=== PATIENT | female | born 1985 | race Two or more races ===

== ENCOUNTER 2025-01-27 23:25 | Emergency (ER) | payer MEDICAID, SELFPAY ==
[2025-01-27 23:28] VITALS: BMI 30.1
[2025-01-27 23:39] VITALS: BP 155/91; PULSE 98; RESP 18; TEMP 36.7; O2SAT 98
--- NOTE | 2025-01-27 23:54 | XR_ITS ---
Examination: PA chest single view TECHNIQUE: Upright PA chest single view Date and time: January 28, 2025, 0022 hours, comparison August 14, 2023 INDICATIONS: Coughing chest pain beginning one week ago. FINDINGS: Normal heart size. No lobar pneumonia. Again noted pulmonary nodule left upper lobe stable compared with August 14, 2023 Mild osteopenia IMPRESSION: No interval pneumonia or pulmonary edema
--- NOTE | 2025-01-28 00:47 | EDNOTE_ITS ---
Upper Respiratory Inf. RME/HPI General Chief Complaint: Flu Like Symptoms Stated Complaint: FEVER, COUGH, SOB, DIZZINESS Time Seen by Provider: 01/27/25 23:54 Arrival date/time: 01/27/25 23:25 39F with history of DM and asthma presents to ED with several days of cough, fevers/chills and intermittent SOB and dizziness. Limitations: no limitations Related Data Previous Rx's ?Medication ?Instructions ?Recorded metformin 850 mg tablet 850 mg PO BID #60 tabs 12/16 glipizide 5 mg tablet 5 mg PO QDAY #30 tabs albuterol sulfate 90 mcg/actuation 2 puff inhalation Q ID PRN 03/09/21 aerosol inhaler (Proventil HFA) shortness of breath or wheezing #8.5 grams ibuprofen 800 mg tablet 800 mg PO TID PRN pain #30 t abs 09/23/22 albuterol sulfate 90 mcg/actuation 1 puff inhalation Q 6H PRN 08/15/23 aerosol inhaler (Ventolin HFA) shortness of breath or wheezing #6.7 grams ibuprofen 400 mg tablet 400 mg PO Q6H PRN fever or p ain 09/17/23 #20 tabs ondansetron 4 mg disintegrating 4 mg PO Q8H PRN nausea and 09/17/23 tablet vomiting #15 tabs albuterol sulfate 90 mcg/actuation 2 puff inhalation Q 6H PRN 01/28/25 aerosol inhaler (Ventolin HFA) shortness of breath or wheezing #8.5 grams azithromycin 250 mg tablet See Rx Instructions PO .COM PLEX #6 01/28/25 tabs Allergies Allergy/AdvReac Type Severity Reaction Status Date / Time No Known Allergies Allergy Verified 01/27/25 23:33 Review of Systems Review of Systems Systems Reviewed: All systems reviewed, normal except as documented Constitutional Constitutional: Reports system reviewed and no additional complaints, except as documented, Reports as per HPI, Reports chills, Reports fever(s) and Denies headache(s) ENT Ears, Nose, Mouth, and Throat: Reports as per HPI, Denies disequilibrium, Denies headache(s) and Reports vertigo Cardiovascular Cardiovascular: Reports system reviewed and no additional complaints, except as documented, Denies chest pain and Reports dyspnea Respiratory Respiratory: Reports system reviewed and no additional complaints, except as documented, Reports as per HPI, Reports cough and Reports dyspnea Gastrointestinal Gastrointestinal: Reports system reviewed and no additional complaints, except as documented, Denies abdominal pain, Denies nausea and Denies vomiting Neurologic Neurologic: Reports system reviewed and no additional complaints, except as doc umented, Denies confusion, Denies disequilibrium, Denies headache(s) and Reports vertigo Psychiatric Psychiatric: Denies confusion Past Medical History Past Medical History NEUROLOGIC: Positive Preston's Palsy (2019) CARDIAC: Negative Cardiac Disorders or Congestive Heart Failure RESPIRATORY: Positive Asthma; Negative Chronic Obstructive Pulmonary Disease (COPD) GENITOURINARY: Negative Renal Disease ENDOCRINE: Positive Diabetes Mellitus Type 2; Negative Diabetes Mellitus Type 1 HEMATOLOGIC: Negative Sickle Cell Disease Social History SMOKING STATUS: Never smoker ED Exam General Limitations: Present no limitations General appearance: Present alert and in no apparent distress Head Head exam: Present atraumatic Eye Eye exam: Present normal appearance, PERRL and EOMI ENT ENT exam: Present mucous membranes moist Expanded ENT Exam Throat exam: Present tonsillar erythema; Absent tonsillomegaly, tonsillar exudate, R peritonsillar mass, L peritonsillar mass or muffled voice Neck Neck exam: Present normal inspection, full ROM and trachea midline Chest Chest inspection: Present normal inspection and symmetric chest wall rise Respiratory Respiratory exam: Present normal lung sounds bilaterally Cardiovascular Cardiovascular exam: Present regular rate, normal rhythm and normal heart sounds Abdominal Exam Abdominal exam: Present soft and normal bowel sounds Extremities Exam Extremities exam: Present normal inspection and full ROM Back Exam Back exam: Present normal inspection and full ROM Neurological Exam Neurological exam: Present alert, oriented X3 and CN II-XII intact Psychiatric Psychiatric exam: Present normal affect and normal mood Skin Skin exam: Present warm, dry, intact and normal color Course Quality Measures none Orders Category Date Time Status Bedside COVID-19 Antigen Test NOW Care 01/27/25 23:33 Completed Bedside Influenza A&B Antigen Test NOW Care 01/27/25 23:33 Completed XR chest 1V portable Stat Exams 01/27/25 23:54 Taken Strep A Rapid Stat Lab 01/28/25 00:05 Completed predniSONE Med 01/27/25 23:54 Discontinued 60 mg PO X1 ONE Vital Signs Vital signs: Vital Signs Temperature 98.1 F 01/27/25 23:39 Pulse Rate 98 01/27/25 23:39 Respiratory Rate 18 01/27/25 23:39 Blood Pressure 155/91 H 01/27/25 23:39 Pulse Oximetry (%) 98 01/27/25 23:39 Oxygen Delivery Method Room Air 01/27/25 23:39 O2 at 98% on RA and WNLs Upper Respiratory Infection MDM Narrative MDM Narrative:: 39F with history of DM and asthma presents to ED with several days of cough, fevers/chills and intermittent SOB and dizziness. Physical exam reveals red oropharynx, but otherwise clear lungs. Normal WOB. Speech normal. Gait normal. Patient is afebrile, calm, and alert. Swabs neg. Telerad reveals pulmonary nodules. Steroids improved symptoms. Meds and student support counselor given. Patient data External records reviewed:: [facility] previous records Clinical information provided by:: patient Social determinants that could affect healthcare access:: none Patient has the following chronic illnesses:: asthma and DM How is presenting disease/condition affected by chronic disease/condition?: exacerbated by Evaluation data The following diagnostics were reviewed and interpreted by me:: lab results and radiology exam(s) Lab and/or radiology exams considered but not ordered:: ordered Interpretation Summary: above Medications / Prescriptions Medications or Prescriptions considered but not ordered:: ordered Medication administrations:: Medication Administration History Discontinued Medications Prednisone (Prednisone 20 Mg Tablet) 60 mg PO X1 ONE Stop: 01/27/25 23:55 Last Admin: 01/28/25 00:30 Dose: 60 mg Documented By: OA above Consultations Consultation(s) initiated? (list below): No Diagnosis Upper Respiratory Differential Diagnosis: upper respiratory infection, croup, otitis media, sinusitis, viral infection, bronchitis, influenza, pharyngitis and other (respiratory infection and incidental pulmonary nodule) Most likely diagnosis given after review of the tests above:: respiratory infection and incidental pulmonary nodule Admission Indicated Admission indicated?: not indicated Admission Request Was there a request for admission?: No Disposition Plan Disposition Plan: Discharge Discharge Attestation Discharge Attestation: The patient and all family members were given an opportunity to ask questions and understood the discharge instructions. Discharge instructions specifically effects, indications for sooner follow up or return to the emergency department, and the expected course of current diagnosis. Patient condition: Stable Discharge Plan Plan Patient Disposition: HOME (Self Care) Discharge Disposition comment: Stable Prescriptions/Referrals Prescriptions/Med Rec: New azithromycin 250 mg tablet See Rx Instructions .ROUTE .COMPLEX Qty: 6 0RF Rx Instructions: For 250 mg dose pack: take 500 mg today (day 1), then 250 mg for 4 days (days 2-5) albuterol sulfate [Ventolin HFA] 90 mcg/actuation HFA aerosol inhaler 2 puff inhalation Q6H PRN (Reason: shortness of breath or wheezing) Qty: 8.5 3RF No Action metformin 850 mg tablet 850 mg PO BID Qty: 60 0RF albuterol sulfate [Proventil HFA] 90 mcg/actuation HFA aerosol inhaler 2 puff inhalation QID PRN (Reason: shortness of breath or wheezing) Qty: 8.5 0RF glipizide 5 mg tablet 5 mg PO QDAY Qty: 30 0RF ibuprofen 800 mg tablet 800 mg PO TID PRN (Reason: pain) Qty: 30 0RF albuterol sulfate [Ventolin HFA] 90 mcg/actuation HFA aerosol inhaler 1 puff inhalation Q6H PRN (Reason: shortness of breath or wheezing) Qty: 6.7 0RF ibuprofen 400 mg tablet 400 mg PO Q6H PRN (Reason: fever or pain) Qty: 20 0RF ondansetron 4 mg tablet,disintegrating 4 mg PO Q8H PRN (Reason: nausea and vomiting) Qty: 15 0RF Referrals: No Primary/Family,Physician [Primary Care Provider] - In 1 week Problem List Clinical Impression: Respiratory infection, Incidental pulmonary nodule Patient/Caregiver Discharge Instructions Education Materials: ED Pulmonary Nodule, Solitary Additional Instructions: Please follow-up with PCP within 24-48 hours and return immediately if symptoms worsen. Ibuprofen/Tylenol can be used simultaneously for greater fever/pain control. Benadryl is good for cough, congestion, and sleep. Keep hydrated. Advance diet as tolerated. Print Language: Malawian Stand Alone Forms: Patient Portal Info Letter PA/PINKING MACHINE OPERATOR Supervising Physician RYAN/MACIE Supervising Physician: Dr. Escamilla
[2025-01-28 00:49] LABS: Strep A Rapid Negative (Negative)
--- NOTE | 2025-01-28 01:49 | PRELIM_ITS ---
Radiograph of the chest (single PA Upright view). January 28, 2025 0018 hours Clinical history: Cough 1 week No prior study is available for comparison. Findings: The heart, mediastinum and pulmonary safia are unremarkable. There is a focal nodular opacity in the left upper lung measuring 6 mm with an adjacent 2-3 mm nodule. There is no pleural effusion. Impression: No focal consolidation. Left upper lobe focal nodular opacity with an adjacent 2-3 mm nodule. Recommend comparison with prior studies, follow-up as per Fleischner's criteria. Report Electronically Signed By: Chase Branch 01/28/2025 1:48:24 AM [EST]
== END 2025-01-28 02:02 | disposition home or self-care (01) ==
PROVIDERS: Physician Assistant; Emergency Provider Emergency Medicine
DX: J06.9 Acute upper respiratory infection, unspecified (principal); R91.1 Solitary pulmonary nodule
CPT/HCPCS: 71045; 87400; 87651; 87811; 99283; J7512

== ENCOUNTER 2025-02-13 23:07 | Emergency (ER) | payer MEDICAID, SELFPAY ==
[2025-02-13 23:08] VITALS: BMI 33.6
[2025-02-14 00:06] VITALS: BP 162/93; PULSE 96; RESP 18; TEMP 36.8; O2SAT 98
[2025-02-14 00:35] LABS: Collection Type, Urine Voided
[2025-02-14 00:37] LABS: Basophils # (Auto) 0.1 Thou/mm3 (0.0-0.2); Basophils % (Auto) 1 % (0-2.5); Eosinophils # (Auto) 0.2 Thou/mm3 (0.0-0.5); Eosinophils % (Auto) 1 % (0-10); Hematocrit 33.3 % (36.0-46.0); Hemoglobin 11.2 g/dL (12.0-16.0); Immature Granulocytes Auto 0.02 Thou/mm3 (0.00-0.00); Lymphocytes # (Auto) 4.7 Thou/mm3 (1.0-4.8); Lymphocytes % (Auto) 43 % (10-50); Mean Corpuscular HGB Conc 33.6 g/dl (31.0-37.0); Mean Corpuscular Hemoglobin 28.9 pg (25.0-35.0); Mean Corpuscular Volume 86 fL (80-100); Monocytes # (Auto) 0.8 Thou/mm3 (0.0-0.8); Monocytes % (Auto) 7 % (0-12); Neutrophils # (Auto) 5.3 Thou/mm3 (1.8-7.7); Neutrophils % (Auto) 48 % (37-80); Nucleated Red Blood Cell # 0.00 Thou/mm3 (0.00-0.00); Nucleated Red Blood Cell % 0 /100 WBC (0); Platelet Count 483 Thou/mm3 (140-440); RDW Standard Deviation 41.9 fL (36.4-46.3); Red Blood Count 3.87 Miln/mm3 (4.00-5.20); White Blood Count 11.0 Thou/mm3 (3.6-11.0)
[2025-02-14 00:43] LABS: Amorphous Crystals,Urine Present (Absent); Bilirubin,Urine Negative (Negative); Blood,Urine 2+ (Negative); Clarity,Urine Turbid (Clear/Hazy); Color,Urine Lt-Yellow (Lt Yel-Yel); Glucose, Urine Negative (Negative); Ketones,Urine Negative (Negative); Leukocyte Esterase,Urine Negative (Negative); Nitrite,Urine Negative (Negative); PH,Urine 6.5 (5.0-7.0); Protein,Urine Trace (Neg - Trace); RBC,Urine 38 /hpf (0-3); Specific Gravity,Urine 1.020 (1.001-1.035); Squamous Epithelial Cell,Urine 6 /hpf (0-5); Urobilinogen,Urine Negative mg/dL (0.0-1.0); WBC,Urine 7 /hpf (0-5)
[2025-02-14 00:58] LABS: Alanine Aminotransferase 24 U/L (10-49); Albumin, Serum 4.3 gm/dL (3.5-5.0); Albumin/Globulin Ratio 1.4 (1.2-2.2); Alkaline Phosphatase 131 U/L (46-116); Anion Gap 10 (7-16); Aspartate Amino Transferase 15 U/L (0-34); BUN/Creatinine Ratio 17 Ratio (12-20); Beta HCG,Quantitative < 1 mIU/mL (<5.0); Bilirubin,Total 0.2 mg/dL (0.3-1.2); Blood Urea Nitrogen 10 mg/dL (9-23); Calcium 9.5 mg/dL (8.3-10.6); Calcium (Corrected) 9.5 mg/dL (8.5-10.1); Carbon Dioxide 26.2 mMol/L (20.0-31.0); Chloride 106 mMol/L (98-107); Creatinine (Component) 0.6 mg/dL (0.6-1.3); Estimated Creatinine Clearance 128.4 mL/min (>60); Globulin 3.0 gm/dL (2.3-3.5); Glucose 121 mg/dL (74-106); Osmolality,Calculated 283 (275-295); Potassium 3.6 mMol/L (3.4-5.1); Sodium 142 mMol/L (136-145); Total Protein 7.3 gm/dL (5.7-8.2); eGFR > 60 See Note
--- NOTE | 2025-02-14 01:18 | XR_ITS ---
Examination: Pelvic ultrasound, transabdominal, complete Technique: Transabdominal ultrasound of the pelvis performed using grayscale imaging Date and time of exam: February 14, 2025, 0116 hrs. Indications: Onset vaginal bleeding today, history bladder infections Findings: Uterus 6.7 cm no uterine mass or intrauterine gestation Ovaries obscured by bowel gas Impression: Limited study No uterine mass or intrauterine gestation
--- NOTE | 2025-02-14 02:24 | PRELIM_ITS ---
Pelvic ultrasound (transabdominal). February 14, 2025 at 0116 hours Clinical history: Vaginal bleeding. Findings and Impression: The evaluation is limited due to body habitus. The uterus is normal in size measuring 6.7 x 3.5 x 6.1 cm. No definite masses are seen. Endometrial stripe is not clearly visualized. The ovaries are not visualized. There is no adnexal mass. There is no free fluid on the submitted images. Recommend transvaginal scan as indicated. Report Electronically Signed By: Chase Branch 02/14/2025 2:23:15 AM [EST]
--- NOTE | 2025-02-14 02:53 | PD.EDVAGBL ---
ED OB Contraction Preg RMI/HPI General Chief complaint: Vaginal Bleeding Stated complaint: VAG BLEEDING AND PAIN Time Seen by Provider: 02/13/25 23:46 Arrival date/time: 02/13/25 23:07 This is a case of 40-year-old female with no medical history came in in the emergency room due to vaginal bleeding today associated with pelvic discomfort and painful urination with no hematuria patient had. First week of this month and started to have vaginal bleeding again today no blood clots no abdominal pain no fever no chills patient denies persistence of the symptoms this patient decided to start consult here in the emergency room Limitations: no limitations Related Data Previous Rx's ?Medication ?Instructions ?Recorded metformin 850 mg tablet 850 mg PO BID #60 tabs 12/17/19 glipizide 5 mg tablet 5 mg PO QDAY #30 tabs 01/11/20 albuterol sulfate 90 mcg/actuation 2 puff inhalation QID PRN 03/09/21 aerosol inhaler (Proventil HFA) shortness of breath or wheezing #8.5 grams ibuprofen 800 mg tablet 800 mg PO TID PRN pain #30 tabs 09/23/22 albuterol sulfate 90 mcg/actuation 1 puff inhalation Q6H PRN 08/15/23 aerosol inhaler (Ventolin HFA) shortness of breath or wheezing #6.7 grams ibuprofen 400 mg tablet 400 mg PO Q6H PRN fever or pain 09/17/23 #20 tabs ondansetron 4 mg disintegrating 4 mg PO Q8H PRN nausea and 09/17/23 tablet vomiting #15 tabs albuterol sulfate 90 mcg/actuation 2 puff inhalation Q6H PRN 01/28/25 aerosol inhaler (Ventolin HFA) shortness of breath or wheezing #8.5 grams azithromycin 250 mg tablet See Rx Instructions PO .COMPLEX #6 01/28/25 tabs nitrofurantoin 100 mg PO BID #20 caps 02/14/25 monohydrate/macrocrystals 100 mg capsule (Macrobid) Allergies Allergy/AdvReac Type Severity Reaction Status Date / Time No Known Allergies Allergy Verified 02/13/25 23:12 Review of Systems Review of Systems Systems Reviewed: All systems reviewed, normal except as documented Constitutional Constitutional: Reports system reviewed and no additional complaints, except as documented and Reports as per HPI Cardiovascular Cardiovascular: Reports system reviewed and no additional complaints, except as documented and Reports as per HPI Respiratory Respiratory: Reports system reviewed and no additional complaints, except as documented and Reports as per HPI Gastrointestinal Gastrointestinal: Reports system reviewed and no additional complaints, except as documented and Reports as per HPI Musculoskeletal Musculoskeletal: Reports system reviewed and no additional complaints, except as documented and Reports as per HPI Integumentary/Breasts Skin/Breast: Reports system reviewed and no additional complaints, except as documented and Reports as per HPI Neurologic Neurologic: Reports system reviewed and no additional complaints, except as documented and Reports as per HPI Past Medical History Past Medical History NEUROLOGIC: Positive Preston's Palsy (2019) CARDIAC: Negative Cardiac Disorders or Congestive Heart Failure RESPIRATORY: Positive Asthma; Negative Chronic Obstructive Pulmonary Disease (COPD) GENITOURINARY: Negative Renal Disease ENDOCRINE: Positive Diabetes Mellitus Type 2; Negative Diabetes Mellitus Type 1 HEMATOLOGIC: Negative Sickle Cell Disease Social History SMOKING STATUS: Never smoker ED Exam General Limitations: Present no limitations General appearance: Present alert, in no apparent distress and other (Patient is awake alert oriented not in distress nontoxic looking well-hydrated well-nourished) Head Head exam: Present atraumatic, normocephalic and normal inspection Eye Eye exam: Present normal appearance, PERRL and EOMI ENT ENT exam: Present normal exam, normal oropharynx and mucous membranes moist Neck Neck exam: Present normal inspection, full ROM and trachea midline; Absent tenderness, meningismus, lymphadenopathy or thyromegaly Chest Chest inspection: Present normal inspection and symmetric chest wall rise; Absent tenderness Respiratory Respiratory exam: Present normal lung sounds bilaterally; Absent respiratory distress, wheezes, stridor, accessory muscle use or prolonged expiratory phase Cardiovascular Cardiovascular exam: Present regular rate, normal rhythm and normal heart sounds; Absent bradycardia, tachycardia, irregular rhythm, systolic murmur or diastolic murmur Abdominal Exam Abdominal exam: Present soft and normal bowel sounds; Absent distention, tenderness, guarding, rebound, rigidity, diminished bowel sounds, hyperactive bowel sounds, hypoactive bowel sounds, organomegaly, psoas sign, obturator sign, Jimenez's sign, Rovsing's sign, tenderness at McBurney's Point or hernia Extremities Exam Extremities exam: Present normal inspection and full ROM Back Exam Back exam: Present normal inspection and full ROM Neurological Exam Neurological exam: Present alert, oriented X3, CN II-XII intact, normal gait and reflexes normal; Absent motor sensory deficit Psychiatric Psychiatric exam: Present normal affect and normal mood Skin Skin exam: Present warm, dry, intact and normal color Course Quality Measures none Orders Category Date Time Status US pelvic complete Stat Exams 02/14/25 01:18 Taken ABO/RH Type Stat Lab 02/14/25 00:28 Completed Beta HCG,Quantitative Stat Lab 02/14/25 00:28 Completed CBC Stat Lab 02/14/25 00:28 Completed CMP [Comprehensive Metabolic Panel] Stat Lab 02/14/25 00:28 Completed Urinalysis Stat Lab 02/14/25 00:10 Completed Vital Signs Vital signs: Vital Signs Temperature 98.3 F 02/14/25 00:06 Pulse Rate 96 02/14/25 00:06 Respiratory Rate 18 02/14/25 00:06 Blood Pressure 162/93 H 02/14/25 00:06 Pulse Oximetry (%) 98 02/14/25 00:06 Oxygen Delivery Method Room Air 02/14/25 00:06 Oxygen saturation is 98% normal in room air Vaginal Bleeding MDM Narrative MDM Narrative: This is a case of 40-year-old female with no medical history came in in the emergency room due to vaginal bleeding today associated with pelvic discomfort and painful urination with no hematuria patient had. First week of this month and started to have vaginal bleeding again today no blood clots no abdominal pain no fever no chills patient denies persistence of the symptoms this patient decided to start consult here in the emergency room patient is awake alert oriented not in distress nontoxic looking well-hydrated well-nourished abdominal exam is benign nonsurgical no guarding no rebound no rigidity negative psoas negative straight or negative Rovsing's negative McBurney's negative Jimenez sign negative CVA tenderness bladder is not distended not tender excellent skin turgor patient is not pale the rest of the physical examination and neurological exam is normal and unremarkable patient blood test showed no leukocytosis no anemia platelet is normal kidney and liver function is normal no electrolyte imbalance patient is not hCG is negative patient urinalysis shows positive blood and WBC in urine suggestive of urinary tract infection pelvic ultrasound is normal at this point patient will follow-up with PCP to be referred to OB bill poster installer for further evaluation and treatment of abnormal vaginal bleeding patient will be treated as urinary tract infection also and was discharged with Macrobid patient will follow-up with PCP in 2 days for evaluation and for any recurrence persistent worsening symptoms or any emergent concern patient will return here in the emergency room or call 911 Patient was discharged with comfortable condition walking with stable gait. Patient verbalized no further complains explained diagnosis and answered patient question. Patient is comfortable with the proposed management plan including the need to follow up with his/her primary care physician and any specialist if applicable Discussed patient for any urgent condition or worsening sx, He/She needed to go to emergency room immediately or call 911. Patient acknowledge the responsibility to follow up as instructed and to monitor her/his symptoms. For any persistence of the symptoms for more than 3-5 days return precaution advised. Discussed the result of the test and was given printed discharge instruction Patient data External records reviewed:: [facility] previous records Clinical information provided by:: patient Social determinants that could affect healthcare access:: none Patient has the following chronic illnesses:: None How is presenting disease/condition affected by chronic disease/condition?: no chronic disease Evaluation data The following diagnostics were reviewed and interpreted by me:: lab results and radiology exam(s) Lab and/or radiology exams considered but not ordered:: Reviewed Interpretation Summary: Reviewed Medications / Prescriptions Medications or Prescriptions considered but not ordered:: Given Medication administrations:: Given Consultations Consultation(s) initiated? (list below): No Diagnosis Vaginal Bleeding Differential Diagnosis: other (Abnormal vaginal bleeding) Most likely diagnosis given after review of the tests above:: Abnormal vaginal bleeding Admission Indicated Admission indicated?: not indicated Explain why admission is indicated or not indicated:: Not indicated Admission Request Was there a request for admission?: No Admission Attestation Admission request attestation: Not indicated Disposition Plan Disposition Plan: Discharge Discharge Attestation Discharge Attestation: The patient and all family members were given an opportunity to ask questions and understood the discharge instructions. Discharge instructions specifically effects, indications for sooner follow up or return to the emergency department, and the expected course of current diagnosis. Patient condition: Stable Discharge Plan Plan Patient Disposition: HOME (Self Care) Patient condition on transfer: Stable Prescriptions/Referrals Prescriptions/Med Rec: New nitrofurantoin monohyd/m-cryst [Macrobid] 100 mg capsule 100 mg PO BID Qty: 20 0RF Rx Instructions: must administer with a meal/food No Action metformin 850 mg tablet 850 mg PO BID Qty: 60 0RF albuterol sulfate [Proventil HFA] 90 mcg/actuation HFA aerosol inhaler 2 puff inhalation QID PRN (Reason: shortness of breath or wheezing) Qty: 8.5 0RF glipizide 5 mg tablet 5 mg PO QDAY Qty: 30 0RF ibuprofen 800 mg tablet 800 mg PO TID PRN (Reason: pain) Qty: 30 0RF albuterol sulfate [Ventolin HFA] 90 mcg/actuation HFA aerosol inhaler 1 puff inhalation Q6H PRN (Reason: shortness of breath or wheezing) Qty: 6.7 0RF azithromycin 250 mg tablet See Rx Instructions .ROUTE .COMPLEX Qty: 6 0RF Rx Instructions: For 250 mg dose pack: take 500 mg today (day 1), then 250 mg for 4 days (days 2-5) albuterol sulfate [Ventolin HFA] 90 mcg/actuation HFA aerosol inhaler 2 puff inhalation Q6H PRN (Reason: shortness of breath or wheezing) Qty: 8.5 3RF ibuprofen 400 mg tablet 400 mg PO Q6H PRN (Reason: fever or pain) Qty: 20 0RF ondansetron 4 mg tablet,disintegrating 4 mg PO Q8H PRN (Reason: nausea and vomiting) Qty: 15 0RF Referrals: No Primary/Family,Physician [Primary Care Provider] - In 1 week Problem List Clinical Impression: Abnormal vaginal bleeding, Urinary tract infection Patient/Caregiver Discharge Instructions Education Materials: Urinary Tract Infections in Women, ED Dysfunctional Uterine Bleeding Additional Instructions: Up with your primary care physician in 2 days for reevaluation and to be referred to OB bill poster installer for further evaluation and treatment of abnormal vaginal bleeding persistent worsening symptoms or any emergent concern call 911 or go to the nearest emergency room take your medication as directed finish the course of antibiotic keep hydrated Print Language: Chinese Stand Alone Forms: Winter Award Info., Patient Portal Info Letter PA/JEWEL OLIVING MACHINE OPERATOR Supervising Physician PA/JEWEL OLIVING MACHINE OPERATOR Supervising Physician: Dr. Stefania Denis
== END 2025-02-14 03:30 | disposition home or self-care (01) ==
PROVIDERS: Nurse Practitioner Family; Emergency Provider Emergency Medicine
DX: N39.0 Urinary tract infection, site not specified (principal); N93.9 Abnormal uterine and vaginal bleeding, unspecified
CPT/HCPCS: 36415; 76856; 80053; 81001; 84702; 85025; 86900; 86901; 99283